=== PATIENT | male | born 1990 | race African-American/Black ===

== ENCOUNTER 2019-03-05 10:25 | Emergency (ER) | payer MEDICAID ==
[~2019-03-05] VITALS: Ht 182.9 cm; Wt 72.7 kg
[2019-03-05 10:30] VITALS: BP 135/91; Ht 182.9 cm; Wt 72.7 kg
[2019-03-05] MEDS ORDERED: SEROQUEL100 MG PO (10:32)
[2019-03-05] MEDS ORDERED: DEPAKOTE125 MG PO (10:32)
[2019-03-05] MEDS ORDERED: KLONOPIN1 MG PO (10:32)
[2019-03-05] MEDS ORDERED: XANAX1 MG PO (22:45)
[2019-03-05] MEDS ORDERED: CYCLOBENZAPRINE10 MG PO (23:13)
[2019-03-05] MEDS ORDERED: IBUPROFEN800 MG PO (23:13)
[2019-03-05] MEDS ORDERED: ACETAMINOPHEN500 M1 PO (23:13)
== END 2019-03-05 10:55 | disposition left against medical advice (07) ==
LOC: D.ER 10:25
DX: Z86.69 Personal history of other diseases of the nervous system and sense organs (principal)

== ENCOUNTER 2019-03-05 22:38 | Emergency (ER) | payer MEDICAID ==
[~2019-03-05] VITALS: Ht 182.9 cm; Wt 72.7 kg
[~2019-03-05 22:38] MED LIST: DEPAKOTE125 MG PO; KLONOPIN1 MG PO; SEROQUEL100 MG PO
[2019-03-05 22:42] VITALS: Ht 182.9 cm; Wt 72.7 kg
[2019-03-05] MEDS ORDERED: XANAX1 MG PO (22:45)
[2019-03-05] MEDS ORDERED: IBUPROFEN800 MG PO (23:13)
[2019-03-05] MEDS ORDERED: CYCLOBENZAPRINE10 MG PO (23:13)
[2019-03-05] MEDS ORDERED: ACETAMINOPHEN500 M1 PO (23:13)
[2019-03-05 23:20] VITALS: BP 122/78
== END 2019-03-05 23:22 | disposition home or self-care (01) ==
LOC: D.ER 22:38
DX: S09.22XA Traumatic rupture of left ear drum, initial encounter (principal); X58.XXXA Exposure to other specified factors, initial encounter; H92.02 Otalgia, left ear

== ENCOUNTER 2019-03-07 13:25 | Emergency (ER) | payer MEDICAID ==
[~2019-03-07] VITALS: Ht 182.9 cm; Wt 72.7 kg
[~2019-03-07 13:25] MED LIST changes: +ACETAMINOPHEN500 M1 PO; +CYCLOBENZAPRINE10 MG PO; +IBUPROFEN800 MG PO; +XANAX1 MG PO
[2019-03-07 13:30] VITALS: BP 147/97; Ht 182.9 cm; Wt 72.7 kg
== END 2019-03-07 15:04 | disposition left against medical advice (07) ==
LOC: D.ER 13:25
DX: R55 Syncope and collapse (principal); R51 Headache

== ENCOUNTER 2020-07-06 00:58 | Emergency (ER) | payer MEDICAID ==
[~2020-07-06] VITALS: Ht 182.9 cm; Wt 72.7 kg
[2020-07-06 01:01] VITALS: Ht 182.9 cm; Wt 72.7 kg
[2020-07-06] MEDS ORDERED: PROAIR HFA8.5 G1 INH (01:06)
[2020-07-06 01:30] LABS: BASOPHILS 0.3 % (0-2); EOSINOPHILS 1.5 % (0-7); HEMATOCRIT 43.6 % (42.0-54.0); HEMOGLOBIN 14.2 g/dL (13.5-17.5); IMMATURE GRANULOCYTES 0.2 % (0-5); LYMPHOCYTE ABS# 2.89 10x3/uL (1.32-3.57); LYMPHOCYTES 43.9 % (15-50); MCH 28.2 pg (26.0-34.0); MCHC 32.6 g/dL (31.0-37.0); MCV 86.7 fL (80.0-100.0); MEAN PLATELET VOLUME 9.6 fL (7.4-10.4); MONOCYTES 5.8 % (2-11); NEUTROPHIL ABS# 3.19 10x3/uL (1.78-5.38); NEUTROPHILS 48.3 % (40-80); PLATELET COUNT 254 10x3/uL (130-400); RBC 5.03 10x6/uL (4.20-6.10); RDW 13.8 % (11.5-14.5); WBC 6.6 10x3/uL (4.8-10.8)
[2020-07-06 01:33] LABS: CALC OSMOLALITY 277 mosm/kg (275-300); CALCIUM 8.7 mg/dL (8.5-10.1); CARBON DIOXIDE 26.2 mmol/L (21.0-32.0); CHLORIDE - SERUM 104 mmol/L (98-107); CREATININE - SERUM 1.1 mg/dL (0.6-1.3); GLUCOSE 122 mg/dL (74-106); POTASSIUM - SERUM 3.7 mmol/L (3.5-5.1); SODIUM 139 mmol/L (136-145); UREA NITROGEN 10 mg/dL (7-18); eGFR NON AFRICAN AMERICAN 84 mL/min (90-120)
[2020-07-06 01:38] LABS: ALBUMIN 4.2 g/dL (3.4-5.0); ALKALINE PHOSPHATASE 48 U/L (30-120); ALT (SGPT) 22 U/L (10-68); AMYLASE - SERUM 71 U/L (25-115); BILIRUBIN - TOTAL 0.29 mg/dL (0.2-1.3); LIPASE 200 U/L (73-393); PROTEIN - SERUM 7.5 g/dL (6.4-8.2)
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
[2020-07-06 01:51] LABS: BILIRUBIN NEGATIVE (NEGATIVE); KETONE NEGATIVE (NEGATIVE); NITRITE NEGATIVE (NEGATIVE); UROBILINOGEN NORMAL mg/dL (< 2)
[2020-07-06 02:04] LABS: HELICOBACTER PYLORI IGG POSITIVE (NEGATIVE)
[2020-07-06] MEDS ORDERED: PROTONIX40 MG PO (02:04)
[2020-07-06] MEDS ORDERED: CLARITHROMYCIN500 M1 PO (02:12)
[2020-07-06] MEDS ORDERED: FLAGYL500 MG PO (02:12)
[2020-07-06 02:36] VITALS: BP 123/88
== END 2020-07-06 02:37 | disposition home or self-care (01) ==
LOC: D.ER 00:58
PROVIDERS: Emergency Medicine
DX: K29.60 Other gastritis without bleeding (principal); J45.909 Unspecified asthma, uncomplicated; Z72.0 Tobacco use; R10.9 Unspecified abdominal pain

== ENCOUNTER 2020-09-12 07:55 | Emergency (ER) | payer MEDICAID ==
[~2020-09-12] VITALS: Ht 182.9 cm; Wt 70.5 kg
[~2020-09-12 07:55] MED LIST changes: +CLARITHROMYCIN500 M1 PO; +FLAGYL500 MG PO; +PROAIR HFA8.5 G1 INH; +PROTONIX40 MG PO
[2020-09-12 07:57] VITALS: BP 155/95; Ht 182.9 cm; Wt 70.5 kg
[2020-09-12 08:46] LABS: CALC OSMOLALITY 277 mosm/kg (275-300); CALCIUM 8.7 mg/dL (8.5-10.1); CARBON DIOXIDE 29.8 mmol/L (21.0-32.0); CHLORIDE - SERUM 104 mmol/L (98-107); CREATININE - SERUM 1.2 mg/dL (0.6-1.3); GLUCOSE 97 mg/dL (74-106); POTASSIUM - SERUM 3.9 mmol/L (3.5-5.1); SODIUM 140 mmol/L (136-145); UREA NITROGEN 10 mg/dL (7-18); eGFR NON AFRICAN AMERICAN 76 mL/min (90-120)
[2020-09-12 08:47] LABS: BASOPHILS 0.5 % (0-2); EOSINOPHILS 1.3 % (0-7); HEMATOCRIT 44.2 % (42.0-54.0); HEMOGLOBIN 14.2 g/dL (13.5-17.5); LYMPHOCYTES 40.3 % (15-50); MCH 27.8 pg (26.0-34.0); MCHC 32.1 g/dL (31.0-37.0); MCV 86.7 fL (80.0-100.0); MEAN PLATELET VOLUME 7.4 fL (7.4-10.4); MONOCYTES 5.9 % (2-11); PLATELET COUNT 231 10x3/uL (130-400); RDW 14.7 % (11.5-14.5); WBC 6.8 10x3/uL (4.8-10.8)
[2020-09-12 08:52] LABS: ALBUMIN 4.2 g/dL (3.4-5.0); ALKALINE PHOSPHATASE 45 U/L (30-120); ALT (SGPT) 136 U/L (10-68); BILIRUBIN - TOTAL 0.47 mg/dL (0.2-1.3); PROTEIN - SERUM 7.7 g/dL (6.4-8.2)
[2020-09-12 09:47] LABS: CREATINE KINASE 536 UL (21-232)
[2020-09-12 09:50] LABS: CKMB 0.5 U/L (0.0-3.6)
== END 2020-09-12 11:24 | disposition left against medical advice (07) ==
LOC: D.ER 07:55
PROVIDERS: Family Medicine
DX: R51.9 Headache, unspecified (principal)